=== PATIENT | female | born 1985 | race Caucasian/White ===

== ENCOUNTER 2017-02-22 14:30 | Emergency (ER) | payer OTHER ==
[~2017-02-22] VITALS: Ht 160 cm; Wt 83.5 kg
[~2017-02-22 14:30] MED LIST: ALBUTEROL 0.5ML INH; IBUPROFEN600 MG PO; METHOTREXATE2.5 MG; NEURONTIN800 MG; PEPCID PO; RAYOS5 MG; VISTARIL PO; VITAMIN D1000 UNIT; ZOFRAN PO
== END 2017-02-22 16:04 | disposition home or self-care (01) ==
LOC: SED 14:30
DX: M54.31 Sciatica, right side (principal); F17.210 Nicotine dependence, cigarettes, uncomplicated; Z91.040 Latex allergy status; Z79.899 Other long term (current) drug therapy
CPT/HCPCS: 96372; 99283; J1885